=== PATIENT | female | born 1950 | race Caucasian/White ===

== ENCOUNTER → 2017-04-25 | Outpatient (CLI) | payer BC ==
--- NOTE | 2017-04-25 15:23 | BD ---
EXAMINATION TYPE: MG DEXA axial skeleton. DATE OF EXAM: 04/25/2017 COMPARISON: 07.11.2005 DEXA bone scan report. CLINICAL HISTORY: M81.0 KNOWN OSTEOPOROSIS Height: 63.3 Weight: 134 LBS FRAX RISK QUESTIONS: Alcohol (3 or more units per day): NO Family History (Parent hip fracture): NO Glucocorticoids (More than 3mos): NO (Ex: prednisone, prednisolone, methylprednisolone, dexamethasone, and hydrocortisone). History of Fracture in Adulthood: NO Secondary Osteoporosis: NO 1. Type 1 Diabetes: NO 2. Hyperthyroidism: NO 3. Menopause before 45: NO 4. Malnutrition: NO 5. Chronic liver disease: NO Rheumatoid Arthritis: NO Current Tobacco Use: NO RISK FACTORS HISTORY OF: Surgery to Spine SPINAL FUSION AND L4 S1, WITH PINS AND RODS When: X2 2014, 2015 Family History of Osteoporosis: YES, HER MOTHER Active: YES Diet low in dairy products/other sources of calcium: NO Postmenopausal woman: 48 YRS Lost more than 2 inches in height since high school: NO Hyperparathyroidism: NO Adrenal Insufficiency: NO MEDICATIONS: Thyroid Medications: YES, SYNTHROID How Lon-10 YRS Additional Medications: BP MEDS Additional History: SPINAL FUSION AND PINNING EXAM MEASUREMENTS: Bone mineral densitometry was performed using the [employer] System. SPINAL FUSION.....SPINE NOT SCANNED Bone mineral density about the R hip (g/cm2): 0.894 Bone mineral density about the L hip (g/cm2): 0.847 T Score values are as follows: -----R Neck: -1.0 -----L Neck: -1.4 -----R Total: -0.6 -----L Total: -0.9 Bone mineral density has: Decreased -8.3% since study of: 07.11.2005 FRAX %'S: THERE IS A 8.3% CHANCE OF A MAJOR OSTEOPOROTIC FX AND A 0.8% CHANCE OF HIP FX.....PROBA BILITY IN 10 YRS TIME IMPRESSION: Osteopenia (T Score between -2.5 and -1 as noted by T score values femoral neck level in the left hip is now present. There is slightly increased risk of fracture and the patient may be considered for t reatment. Re-Screen 2-5 years. NOTE: T-SCORE=SD OF THE YOUNG ADULT MEAN.
--- NOTE | 2017-04-26 12:43 | WWHP ---
CHIEF COMPLAINT: The patient is here for her routine gynecologic exam. HPI: This is a 66-year-old G2, P2 with an LMP of 1999. The patient is without gynecologic complaints and denies any postmenopausal bleeding. PAST MEDICAL HISTORY: Hypothyroidism, tachycardia, chronic back issue and history of osteopenia. MEDICATIONS: Atenolol 50 mg daily, levothyroxine 50 mcg daily. ALLERGIES: No known drug allergies. PAST SURGICAL HISTORY: Colonoscopy in 2004, back fusion surgery in 2014 and 2016. 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 SOCIAL HISTORY: She denies tobacco and drug use and has about one glass of wine daily. 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 Her daughter is Dr. Judge. FAMILY HISTORY: Unchanged from the 2015 H&P. REVIEW OF SYSTEMS: Weight has been stable. She denies respiratory, cardiac or GI problems. PHYSICAL EXAM: Blood pressure 147/68, height 5 feet 4 inches. Weight 135 pounds. Temperature 98.1, pulse 56. This is a well developed, well nourished white female who is alert and oriented x3 in no acute distress. HEENT is within normal limits. Neck supple without mass or thyromegaly. Chest and lungs: Clear to auscultation. Heart: Regular rate and rhythm. Breasts are without mass or discharge. Axillary exam is negative for adenopathy. Back negative for CVA tenderness. Abdomen is soft, nontender without palpable masses. Pelvic exam : External genitalia reveals mild atrophy without lesions. Surface and vagina reveals minimal atrophy without lesions. There is no evidence of prolapse. The uterus is mid-position, nongravid size and nontender. There are no adnexal palpable mass or tenderness. Rectovaginal exam is negative for mass or tenderness and is negative for occult blood. Extremities are nontender. IMPRESSION: 1. A 66-year-old menopausal female with normal gynecologic exam. 2. Elevated blood pressure. PLAN: 1. Pap smear was performed. 2. Self breast examination was discussed. 3. Mammogram will be done today. 4. Osteoporosis prevention was discussed. Bone density testing will be done today. 5. She is due for colonoscopy and she states she is planning to do this in the fall. 6. We have discussed her elevated blood pressure. She states she will home blood pressure checks and will follow up with Dr. Colunga for blood pressure elevations. 7. She will return in one year. VARSHA
--- NOTE | 2017-04-27 09:13 | MM ---
Reason for exam: screening (asymptomatic). Last mammogram was performed 2 years and 6 months ago. History: Patient is postmenopausal. Benign excisional biopsy of the right breast, 1980. Took progesterone for 5 years 2 months beginning at age 51. Physical Findings: A clinical breast exam by your physician is recommended on an annual basis and results should be correlated with mammographic findings. MG Screening Mammo w CAD Bilateral CC and MLO view(s) were taken. Prior study comparison: October 29, 2014, bilateral MG screening mammo w CAD. January 14, 2013, bilateral digital screening mammo w/CAD. November 23, 2010, bilateral digital screening mammo w/CAD. The breast tissue is heterogeneously dense. This may lower the sensitivity of mammography. No significant changes when compared with prior studies. ASSESSMENT: Negative, BI-RAD 1 RECOMMENDATION: Routine screening mammogram of both breasts in 1 year.
== END ==
LOC: WWCWWP 13:54
PROVIDERS: ATTEND Obstetrics & Gynecology
DX: Z12.31 Encounter for screening mammogram for malignant neoplasm of breast (principal); M85.852 Other specified disorders of bone density and structure, left thigh
CPT/HCPCS: 77080; G0202

== ENCOUNTER 2017-07-21 09:43 | Day surgery (SDC) | payer MEDICARE ==
[2017-07-19 11:08] VITALS: BMI 23.1
[~2017-07-21 09:43] MED LIST: LACTATED RINGERS 1,000 ML IV SCH
[2017-07-21 10:09] VITALS: RESP 16
[2017-07-21] MEDS ORDERED: LIDOCAINE 1% 20 ML VIAL (10MG/ML) FOR IV START INTRADERMA ONE (10:10)
[2017-07-21] MEDS ORDERED: PROPOFOL 10 MG/ML 20 ML VIAL IV ONE (11:23)
[2017-07-21] MEDS ORDERED: LIDOCAINE 1% INJ 10MG/ML (20 ML MDV) ONE (11:23)
--- NOTE | 2017-07-21 11:44 | P.PCN ---
Date of Procedure: 07/21/17 Procedure(s) Performed: BRIEF HISTORY: Patient is a 67-year-old pleasant female, scheduled for an elective colonoscopy as a part of screening for colorectal neoplasia. PROCEDURE PERFORMED: Colonoscopy. PREOPERATIVE DIAGNOSIS: He for colon cancer. IV sedation per Anesthesia. PROCEDURE: After informed consent was obtained, the patient, was brought into the endoscopy unit. IV sedation was administered by Anesthesia under continuous monitoring. Digital rectal examination was normal. Initially the Olympus CF- 160 flexible video colonoscope was then inserted in the rectum, gradually advanced into the cecum without any difficulty. Careful examination was performed as the scope was gradually being withdrawn. Ileocecal valve and the appendiceal orifice were visualized and appeared normal. Prep was excellent. Mucosa of the cecum, ascending colon, transverse colon, descending colon, sigmoid colon, and rectum appeared normal. Scattered sigmoid diverticulosis seen. Retroflexion was performed in the rectum and no lesions were seen. The patient tolerated the procedure well. IMPRESSION: Normal-appearing colon from rectum to cecum with no evidence of colorectal neoplasia . Scattered sigmoid diverticulosis. RECOMMENDATIONS: Findings of this examination were discussed with the patient as well as her family. She was advised to have a repeat screening colonoscopy in 10 years.
[2017-07-21 12:09] VITALS: BP 150/68; PULSE 55
== END 2017-07-21 12:44 | disposition home or self-care (01) ==
LOC: ORWHC2ENDO 09:43
PROVIDERS: ATTEND Internal Medicine Gastroenterology
DX: Z12.11 Encounter for screening for malignant neoplasm of colon (principal); K57.30 Diverticulosis of large intestine without perforation or abscess without bleeding; Z80.0 Family history of malignant neoplasm of digestive organs; E07.9 Disorder of thyroid, unspecified; Z79.899 Other long term (current) drug therapy; Z88.5 Allergy status to narcotic agent
CPT/HCPCS: J2001; J2704; G0105

== ENCOUNTER → 2019-06-25 | Outpatient (CLI) | payer MEDICARE ==
--- NOTE | 2019-06-26 10:56 | MM ---
Reason for exam: screening (asymptomatic). Last mammogram was performed 2 years and 2 months ago. History: Patient is postmenopausal. Benign excisional biopsy of the right breast, 1980. Took progesterone for 5 years 2 months beginning at age 51. Physical Findings: A clinical breast exam by your physician is recommended on an annual basis and results should be correlated with mammographic findings. MG 3D Screening Mammo W/Cad Bilateral CC and MLO view(s) were taken. Prior study comparison: April 25, 2017, bilateral MG screening mammo w CAD. October 29, 2014, bilateral MG screening mammo w CAD. The breast tissue is heterogeneously dense. This may lower the sensitivity of mammography. No suspicious abnormality. No significant changes when compared with prior studies. ASSESSMENT: Negative, BI-RAD 1 RECOMMENDATION: Routine screening mammogram of both breasts in 1 year.
== END | disposition home or self-care (01) ==
LOC: RADMAMWWP 09:12
PROVIDERS: ATTEND Internal Medicine Geriatric Medicine
DX: Z12.31 Encounter for screening mammogram for malignant neoplasm of breast (principal)
CPT/HCPCS: 77063; 77067

== ENCOUNTER → 2021-03-02 | Outpatient (CLI) | payer MEDICARE ==
[2021-03-02 11:24] VITALS: BP 156/77; PULSE 58; RESP 18; TEMP 98.2
--- NOTE | 2021-03-02 12:40 | P.HPOB ---
History of Present Illness H&P Date: 03/02/21 Chief Complaint: The patient is here for her routine gynecologic exam. This is a 70-year-old with an LMP of 1999. The patient is without gynecologic complaints and denies any postmenopausal bleeding. Review of Systems Weight has been stable. She denies respiratory or cardiac problems. GI: Occasional digestive problems with certain foods. She wonders if she is having issues with her gallbladder. Past Medical History Past Medical History: Hypertension, Thyroid Disorder Additional Past Medical History / Comment(s): Tachycardia, chronic low back issues and osteopenia. 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 History of Any Multi-Drug Resistant Organisms: None Reported Past Surgical History: Back Surgery Additional Past Surgical History / Comment(s): back fusion surgeries x2. Colonoscopy 2019(next after 10yr). Past Anesthesia/Blood Transfusion Reactions: Previous Problems w/ Anesthesia, Postoperative Nausea & Vomiting (PONV) Additional Past Anesthesia/Blood Transfusion Reaction / Comment(s): very hard to wake up, passed out post op Past Psychological History: No Psychological Hx Reported Smoking Status: Never smoker Past Alcohol Use History: Occasional (7-10 per week) Past Drug Use History: None Reported Additional History: She has been since 1971 and is not sexually active. She watches her grandchildren during the week. - Past Family History Mother Family Medical History: Cancer Additional Family Medical History / Comment(s): skin Sister(s) Family Medical History: Cancer Additional Family Medical History / Comment(s): colon Medications and Allergies Home Medications Medication Instructions Recorded Confirmed Type Levothyroxine Sodium [Synthroid] 50 mcg PO QAM 07/19/17 03/02/21 History atenoloL [Tenormin] 50 mg PO HS 07/19/17 03/02/21 History Allergies Allergy/AdvReac Type Severity Reaction Status Date / Time narcotics AdvReac Nausea & Uncoded 03/02/21 11:18 Vomiting Exam Vital Signs Temp Pulse Resp BP Pulse Ox 03/02/21 11:18 98.2 F 58 L 18 156/77 99 Intake and Output 03/01/21 03/02/21 03/02/21 22:59 06:59 14:59 Other: Weight 62.596 kg Height 5 feet 3 inches, weight 138 pounds, BMI 24.4. This is a well-developed well-nourished white female who is alert and oriented times 3 in no acute distress. HEENT: Within normal limits. NECK: Supple without mass or thyromegaly. CHEST AND LUNGS: Clear to auscultation. HEART: Regular rate and rhythm. BREASTS: Are without mass or discharge. AXILLARY EXAM: Negative for adenopathy. BACK: Negative for CVA tenderness. ABDOMEN: Soft, nontender, without palpable masses. PELVIC EXAM: Normal external genitalia with mild atrophy. Cervix and vagina appear normal mild atrophy. There is no unusual discharge. There is no evidence of prolapse. The uterus is midposition, nongravid size and nontender. There are no palpable adnexal masses or tenderness. RECTAL EXAM: Rectovaginal exam is negative for mass or tenderness and is negative for occult blood. EXTREMITIES: Nontender. IMPRESSION: 1. 70-year-old menopausal female with normal gynecologic exam. 2. History of osteopenia 3. Elevated blood pressure. PLAN: 1. Pap smear was performed. If this is negative, we will consider discontinuing Pap smears since she has no history of cervical neoplasia and we will then have 3 negative Pap smears in the last 10 years. 2. Self breast awareness was discussed with the patient. 3. Screening mammogram is due and the order slip was given to the patient for this. She is also due for a bone density test and the order slip was given to her for this as well. 4. Osteoporosis prevention was discussed. I have stressed the importance of adequate calcium, vitamin D and regular exercise. Recommended amounts of calcium and vitamin D were also discussed. 5. We have discussed her elevated blood pressure. She states she does have a blood pressure cuff at home and I have recommended that she check her own blood pressures on a regular basis and follow-up with Dr. Colunga for blood pressure elevations. 6. She has completed her Covid vaccination series. 7. The patient was advised to return in 1-2 years for her well woman examination.
== END ==
LOC: WWCWWP 11:12
PROVIDERS: ATTEND Obstetrics & Gynecology
DX: Z01.419 Encounter for gynecological examination (general) (routine) without abnormal findings (principal); I10 Essential (primary) hypertension; Z87.39 Personal history of other diseases of the musculoskeletal system and connective tissue; Z79.899 Other long term (current) drug therapy; Z88.5 Allergy status to narcotic agent

== ENCOUNTER → 2021-06-09 | Outpatient (CLI) | payer MEDICARE ==
--- NOTE | 2021-06-09 13:33 | BD ---
EXAMINATION TYPE: Axial Bone Density DATE OF EXAM: 06/09/2021 COMPARISON: 04/25/2017 CLINICAL HISTORY: Height: 63.5 IN Weight: 134 LBS RISK FACTORS HISTORY OF: Surgery to Spine: L-SPINE FUSION AGE 64 Family History of Osteoporosis: YES MOTHER Active: YES Postmenopausal woman: AGE 48 Take estrogen and/or progesterone medications: NOT NOW How long: TOOK FOR 3 YEARS MEDICATIONS: Thyroid Medications: YES Which medication: Levothyroxine How Lon+ YEARS Additional Medications: LEVOTHYROXINE, ATENOLOL, EXAM MEASUREMENTS: Bone mineral densitometry was performed using the [employer] System. L-SPINE FUSION AGE 64 Bone mineral density about the R hip (g/cm2): 0.880 Bone mineral density about the L hip (g/cm2): 0.815 T Score values are as follows: -----R Neck: -1.1 -----L Neck: -1.6 -----R Total: -0.5 -----L Total: -1.0 Bone mineral density has: Decreased -0.2% since study of: 04/25/2017 Bone mineral density about the L Wrist (g/cm2): 0.520 T Score values are as follows: -----Dist. R+U: -2.3 -----Prox. R+U: -2.3 -----Radius total: -2.6 Bone mineral density BASELINE IMPRESSION: Osteoporosis. NOTE: T-SCORE=SD OF THE YOUNG ADULT MEAN.
--- NOTE | 2021-06-10 12:15 | MM ---
Reason for exam: screening (asymptomatic). Last mammogram was performed 1 year and 11 months ago. History: Patient is postmenopausal. Benign excisional biopsy of the right breast, 1980. Took progesterone for 5 years 2 months beginning at age 51. Physical Findings: A clinical breast exam by your physician is recommended on an annual basis and results should be correlated with mammographic findings. MG 3D Screening Mammo W/Cad Bilateral CC and MLO view(s) were taken. Prior study comparison: June 25, 2019, bilateral MG 3d screening mammo w/cad. April 25, 2017, bilateral MG screening mammo w CAD. There are scattered fibroglandular densities. There is no discrete abnormality. No significant changes when compared with prior studies. ASSESSMENT: Negative, BI-RAD 1 RECOMMENDATION: Routine screening mammogram of both breasts in 1 year.
== END ==
LOC: RADMAMWWP 10:17
PROVIDERS: ATTEND Obstetrics & Gynecology
DX: Z12.31 Encounter for screening mammogram for malignant neoplasm of breast (principal); M81.0 Age-related osteoporosis without current pathological fracture; M85.89 Other specified disorders of bone density and structure, multiple sites; Z78.0 Asymptomatic menopausal state
CPT/HCPCS: 77063; 77067; 77080

== ENCOUNTER → 2023-07-05 | Outpatient (CLI) | payer MEDICARE ==
--- NOTE | 2023-07-05 19:17 | BD ---
EXAMINATION TYPE: Axial Bone Density DATE OF EXAM: 07/05/2023 CLINICAL HISTORY: 73 years old Female. ICD-10 CODE: M810 AGE RELATED OSTEO Height: 5 ft 3 1/2 in Weight: 135 FRAX RISK QUESTIONS: Alcohol (3 or more units per day): no Family History (Parent hip fracture): yes Glucocorticoids (More than 3mos): no (Ex: prednisone, prednisolone, methylprednisolone, dexamethasone, and hydrocortisone). History of Fracture in Adulthood: no Secondary Osteoporosis: 1. Type 1 Diabetes: no 2. Hyperthyroidism: no 3. Menopause before 45: yes 4. Malnutrition: no 5. Chronic liver disease: no Rheumatoid Arthritis: no Current Tobacco Use: no RISK FACTORS HISTORY OF: Surgery to Spine/Hip(right/left)/Wrist (right/left): spine surg x 2 When: 2017 and 2016 Family History of Osteoporosis: yes Active: yes Diet low in dairy products/other sources of calcium: no Postmenopausal woman: yes Take estrogen and/or progesterone medications: none now Lost more than 2 inches in height since high school: no Frequent falls: no Poor Health: good Hyperparathyroidism: no Adrenal Insufficiency: no MEDICATIONS: Thyroid Medications: yes Which medication: levothyroxine How Long: approx 15 years Additional Medications: Atenolol, levothyroxine Additional History: EXAM MEASUREMENTS: Bone mineral density about the R hip (g/cm2): 0.841 Bone mineral density about the L hip (g/cm2): 0.801 T Score values are as follows: -----R Neck: -1.4 -----L Neck: -1.7 -----R Total: -0.8 -----L Total: -1.2 Z Score values are as follows: -----R Neck: 0.4 -----L Neck: 0.1 -----R Total: 0.8 -----L Total: 0.4 Bone mineral density has: decreased -3.4 % since study of: 2020 Bone mineral density about the L Wrist (g/cm2): 0.505 T Score values are as follows: -----Dist. R+U: -2.1 -----Prox. R+U: -2.8 -----Radius total: -2.8 Z Score values are as follows: -----Dist. R+U: -0.1 -----Prox. R+U: -0.9 -----Radius total: -0.9 Bone mineral density has: decreased -5.8 % since study of: 2020 FRAX%s: The graph provided illustrates a 16.6 % chance for a major osteoporotic fx and a 4.6 % chance for the hips probability for fx in 10 years time. IMPRESSION: Osteoporosis (T Score less than -2.5). There is increased fracture risk and therapy is usually indicated based on age. Re-Screen 1-2 years. NOTE: T-SCORE=SD OF THE YOUNG ADULT MEAN.
--- NOTE | 2023-07-05 19:38 | MM ---
Reason for Exam: Follow-up at short interval from prior study. Last screening mammogram was performed 7 month(s) ago. Patient History: Menarche at age 14. First Full-Term at age 23. Postmenopausal. Patient has history of breast feeding. Progesterone for 5 years, 2 months, from age 51 until age 56. 1981, Benign Excisional Biopsy on the right side. Risk Values: Lanette 5 year model risk: 1.8%. NCI Lifetime model risk: 5.1%. Prior Study Comparison: 06/09/2021 Bilateral Screening Mammogram, [facility]. 11/30/2022 Bilateral MG 3D screening mammo w/cad, [facility]. 12/05/2022 Left MG 3D work up w/cad , [facility]. Tissue Density: Left: The breast tissue is heterogeneously dense. This may lower the sensitivity of mammography. Findings: Analyzed By CAD. Pattern appears stable. Benign vascular calcifications present. No suspicious groups of microcalcifications, spiculated or lobular masses, architectural distortion or other secondary signs of malignancy are mammographically apparent. Overall Assessment: Benign, BI-RAD 2 Management: Screening Mammogram of both breasts in 6 months. A negative mammogram report should not preclude additional follow up of suspicious palpable abnormalities. Patient should continue monthly self breast exam. A clinical breast exam by your physician is recommended on an annual basis and results should be correlated with mammographic findings. Electronically signed and approved by: Beny Durham D.O. Radiologis
== END | disposition home or self-care (01) ==
LOC: RADBDWWP 09:55
PROVIDERS: ATTEND Internal Medicine Geriatric Medicine
DX: M81.0 Age-related osteoporosis without current pathological fracture (principal); M85.89 Other specified disorders of bone density and structure, multiple sites; R92.8 Other abnormal and inconclusive findings on diagnostic imaging of breast; R92.2 Inconclusive mammogram; Z78.0 Asymptomatic menopausal state
CPT/HCPCS: 77080; 77065; G0279; 77061

== ENCOUNTER → 2024-08-27 | Outpatient (CLI) | payer MEDICARE ==
--- NOTE | 2024-08-31 17:22 | MM ---
Reason for Exam: Screening (asymptomatic). Last mammogram was performed 1 year(s) and 9 month(s) ago. Patient History: Menarche at age 14. First Full-Term at age 23. Postmenopausal. Patient has history of breast feeding. Progesterone for 5 years, 2 months, from age 51 until age 56. 1981, Benign Excisional Biopsy on the right side. Risk Values: Lanette 5 year model risk: 1.9%. NCI Lifetime model risk: 4.8%. Prior Study Comparison: 11/30/2022 Bilateral MG 3D screening mammo w/cad, [facility]. 12/05/2022 Left MG 3D work up w/cad LT, [facility]. 07/05/2023 Left MG 3D diag mammo w/cad LT, [facility]. Tissue Density: The breasts are heterogeneously dense, which may obscure small masses. Findings: Analyzed By CAD. The pattern is symmetrical. Benign vascular calcification is present bilaterally No suspicious groups of microcalcifications, spiculated or lobular masses, architectural distortion or other secondary signs of malignancy are mammographically apparent. Overall Assessment: Benign, BI-RAD 2 Management: Screening Mammogram of both breasts in 1 year. A negative mammogram report should not preclude additional follow up of suspicious palpable abnormalities. Patient should continue monthly self breast exam. A clinical breast exam by your physician is recommended on an annual basis and results should be correlated with mammographic findings. Note on Lanette scores and lifetime risk: 1. A Lanette score greater than 3% is considered moderate risk. If this is the case, consider specialist referral to assess eligibility for a risk reducing agent. 2. If overall lifetime risk for the development of breast cancer is 20% or higher, the patient may qualify for future screening with alternating mammogram and breast MRI. [facility], , 08/31/2024 5:19 PM. Electronically signed and approved by: Beny Durham D.O. Radiologis
== END | disposition home or self-care (01) ==
LOC: RADMAMWWP 12:40
PROVIDERS: ATTEND Internal Medicine Geriatric Medicine
DX: Z12.31 Encounter for screening mammogram for malignant neoplasm of breast (principal); R92.333 Mammographic heterogeneous density, bilateral breasts; Z78.0 Asymptomatic menopausal state
CPT/HCPCS: 77063; 77067